=== PATIENT | female | born 1990 | race Caucasian/White ===

== ENCOUNTER 2016-11-12 06:23 | Day surgery (SDC) | payer OTHER ==
[~2016-11-12] VITALS: Ht 162.6 cm; Wt 58.1 kg
[2016-11-12] MEDS ORDERED: PHENYLEPHRINE 1% 15 ML BTL NS ONE (07:16)
[2016-11-12] MEDS ORDERED: LIDOCAINE/EPI MPF 1%1:200000 30 ML VIAL INJ ONE (07:16)
[2016-11-12] MEDS ORDERED: NEOMYCIN/POLYMYXIN/DEXAMETH OP 3.5 GM TUBE ONE (07:17)
[2016-11-12] MEDS ORDERED: NEOMYCIN/POLYMYXIN/BACITRACIN OIN 15 GM TUBE TP ONE (07:21)
[2016-11-12] MEDS ORDERED: ceFAZolin 1,000 MG VIAL ONE (08:02)
[2016-11-12] MEDS ORDERED: NEOSTIGMINE 1:1000 10 MG/10 ML VIAL ONE (08:09)
[2016-11-12] MEDS ORDERED: ONDANSETRON 4 MG/2 ML VIAL ONE (08:09)
[2016-11-12] MEDS ORDERED: DEXAMETHASONE 4 MG/ML VIAL ONE (08:09)
[2016-11-12] MEDS ORDERED: ROCURONIUM 50 MG/5 ML VIAL IV ONE (08:09)
[2016-11-12] MEDS ORDERED: PROPOFOL 200 MG/20 ML VIAL IV ONE (08:09)
[2016-11-12] MEDS ORDERED: DESFLURANE 240 ML BTL INH ONE (08:09)
[2016-11-12] MEDS ORDERED: GLYCOPYRROLATE 0.2 MG/ML VIAL ONE (08:09)
[2016-11-12] MEDS ORDERED: HYDROmorphone PFS 2 MG/ML SYR ONE (08:14)
[2016-11-12] MEDS ORDERED: fentaNYL 0.05 MG/ML VIAL ONE (08:14)
[2016-11-12] MEDS ORDERED: HYDROmorphone 1 MG/ML AMP IVP PRN (08:45)
[2016-11-12] MEDS ORDERED: ONDANSETRON 4 MG/2 ML VIAL IVP PRN (08:45)
[2016-11-12] MEDS ORDERED: ACETAMIN/CODEINE 120/12MG-5ML 5 ML UDC PO PRN (09:00)
[2016-11-12] MEDS ORDERED: MEPERIDINE 50 MG/ML SYR IVP PRN (09:00)
[2016-11-12] MEDS ORDERED: guaiFENesin DM 200/20 MG-10 ML 10 ML UDC PO PRN (09:00)
[2016-11-12] MEDS ORDERED: PROMETHAZINE 25 MG/ML VIAL IVP PRN (09:00)
== END 2016-11-12 11:15 | disposition home or self-care (01) ==
LOC: MDS 06:23 → MMU 06:30 → MDS 11:15
PROVIDERS: ATTEND Otolaryngology
DX: J34.2 Deviated nasal septum (principal); J34.3 Hypertrophy of nasal turbinates; Z83.3 Family history of diabetes mellitus; Z80.3 Family history of malignant neoplasm of breast; Z72.89 Other problems related to lifestyle
CPT/HCPCS: 30140; 30520; 30999; J0690; J1100; J1170; J2001; J2405; J2704; J2710; J3010; J3490; J7120